=== PATIENT | female | born 1945 | race Caucasian/White ===

== ENCOUNTER 2019-05-04 03:14 | Inpatient (IN) ==
--- NOTE | 2019-04-25 11:07 | EKG Report ---
Test Performed on : 04/25/2019 10:33:45 AM Test Reason : PAT Blood Pressure : / mmHG Vent. Rate : 068 BPM Atrial Rate : 068 BPM P-R Int : 150 ms QRS Dur : 078 ms QT Int : 404 ms P-R-T Axes : 000 012 012 degrees QTc Int : 429 ms Normal sinus rhythm. Low voltage QRS Borderline ECG No previous ECGs available Confirmed by Fito STOVALL, Luis Daniel Aguirre ([id number]) on 04/26/2019 4:18:59 PM
[2019-04-25 11:23] LABS: BASO% 1.2 % (0.0-0.8); EOS# 0.31 X1000 (0.0-0.7); EOS% 3.7 % (0.0-10.0); HEMOGLOBIN 14.1 g/dL (12.0-16.0); IMM GRAN# 0.03 X1000 (0.0-0.04); IMM GRAN% 0.4 % (0.0-0.5); LYMPH# 1.36 X1000 (1.2-3.4); LYMPH% 16.2 % (20.5-51.1); MCH 32.3 PG (27-31); MCHC 34.4 g/dL (33-37); MONO# 0.99 X1000 (0.11-0.59); MONO% 11.8 % (1.7-9.3); MPV 9.4 FL (7.4-10.4); NEUT# 5.59 X1000 (1.4-6.5); NEUT% 66.7 % (42.2-75.2); PLT 323 X1000 (130-400); RBC 4.36 XMIL (4.2-5.4); RDW 13.3 % (11.5-14.5); WBC 8.38 X1000 (4.8-10.8)
[2019-05-04] MEDS ORDERED: ENTEREG ONE (06:35)
[2019-05-04] MEDS ORDERED: PEPCID ONE (06:35)
[2019-05-04] MEDS ORDERED: INVANZ 1 GM/NS 1 GM/50 ML IVPB ONE (06:36)
[2019-05-04] MEDS ORDERED: LR 1,000 ML ONE ×3 (06:36→12:18)
[2019-05-04] MEDS ORDERED: DIPRIVAN 1% ONE (06:53)
[2019-05-04] MEDS ORDERED: QUELICIN (DOSE) ONE (06:55)
[2019-05-04] MEDS ORDERED: ROBINUL ONE (06:55)
[2019-05-04] MEDS ORDERED: XYLOCAINE-MPF 2% ONE (06:55)
[2019-05-04] MEDS ORDERED: MARCAINE 0.25% PF/EPI 1:200,000 ONE (07:27)
[2019-05-04] MEDS ORDERED: SODIUM CHLORIDE 0.9% 10 ML ONE (07:44)
[2019-05-04] MEDS ORDERED: MARCAINE 0.5% PF ONE (07:44)
[2019-05-04] MEDS ORDERED: EXPAREL 1.3% ONE (07:45)
[2019-05-04] MEDS ORDERED: OFIRMEV 1000 MG/ISOTONIC SOLN 1,000 MG/100 ML BOTTLE ONE (08:01)
[2019-05-04] MEDS ORDERED: ZEMURON ONE ×3 (08:09→10:07)
[2019-05-04] MEDS ORDERED: TORADOL ONE (08:26)
[2019-05-04] MEDS ORDERED: ZOFRAN ONE (08:26)
[2019-05-04] MEDS ORDERED: DECADRON ONE (08:26)
[2019-05-04] MEDS ORDERED: FENTANYL ONE (08:33)
[2019-05-04 09:21] LABS: URINE SOURCE CATH
[2019-05-04 09:27] LABS: BILIRUBIN URINE NEGATIVE (NEGATIVE); BLOOD URINE TRACE (NEGATIVE); COLOR YELLOW; GLUCOSE URINE NEGATIVE (NEGATIVE); KETONE URINE 20 mg/dL (NEGATIVE); LEUKOCYTES URINE NEGATIVE (NEGATIVE); NITRITE URINE NEGATIVE (NEGATIVE); PH URINE 6.5; PROTEIN URINE NEGATIVE (NEGATIVE); SP GRAVITY URINE 1.002; TURBIDITY URINE CLEAR (CLEAR); UROBILINOGEN URINE NORMAL (NORMAL)
[2019-05-04 09:31] LABS: UR EPITHELIAL CELLS <10 /HPF (<10); URINE BACTERIA NEGATIVE /HPF; URINE RBC <10 /HPF (<10); URINE WBC <10 /HPF (<10)
[2019-05-04] MEDS ORDERED: BRIDION ONE (11:21)
[2019-05-04] MEDS ORDERED: PHENERGAN ONE (12:25)
[2019-05-04] MEDS ORDERED: XOPENEX NEB INH PRN (13:13)
[2019-05-04] MEDS ORDERED: ZOFRAN IV PRN (13:13)
[2019-05-04] MEDS ORDERED: COMBIVENT RESPIMAT INHALER INH SCH (13:13)
[2019-05-04] MEDS: APRESOLINE PO SCH ×2 (14:59→21:47)
[2019-05-04] MEDS: OFIRMEV 1000 MG/ISOTONIC SOLN 1,000 MG/100 ML BOTTLE IV SCH ×2 (14:59→21:48)
[2019-05-04] MEDS: DUONEB (A & A) INH SCH (16:16)
[2019-05-04] MEDS: PULMICORT INH SCH (21:10)
[2019-05-04] MEDS: SYMBICORT 160/4.5 MICROGM INHALER INH SCH (21:15)
[2019-05-04] MEDS: NORVASC PO SCH (21:47)
[2019-05-04] MEDS: CRESTOR PO SCH (21:47)
[2019-05-04] MEDS: PERIDEX MT SCH (21:47)
[2019-05-04] MEDS: LR 1,000 ML IV SCH (22:48)
--- NOTE | 2019-05-05 01:17 | OPERATIVE NOTE ---
PROCEDURE DATE: 05/04/2019 PREOPERATIVE DIAGNOSIS: Long segment diverticular stricture. POSTOPERATIVE DIAGNOSIS: Long segment diverticular stricture. PROCEDURES PERFORMED: 1. Robotic converted to open low anterior resection with mobilization of the splenic flexure. 2. Descending colectomy. MANAGER AMBULATORY: Dr. Olea. ESTIMATED BLOOD LOSS: 50 mL. SPECIMENS: Left colon. INDICATIONS: A 73-year-old female who has had vague GI complaints, discomfort, colicky pain for the last couple years. She had a CT scan that showed difficulty traversing several stenotic segments of sigmoid colon. It was an incomplete colonoscopy, but barium enema did not show a right-sided lesion, but demonstrated severe diverticular changes with strictures of the sigmoid colon. OPERATIVE FINDINGS: There was dense inflammation along the left pelvic sidewall and into the pelvis. There is a fibroid uterus. There was no purulence. The proximal descending colon was normal. The operation was converted given the inability to divide the thickened inflamed mesorectum and sigmoid mesentery. OPERATIVE NOTE: Risks, benefits, and alternatives were discussed with the patient and she consented to the procedure. She was seen preoperatively. Surgical site was confirmed. She has taken operating room, placed supine position. General anesthesia induced without complication. All bony prominences were padded. A TAP block was performed by Anesthesia. For details, please see their record. A Song catheter was placed. She was placed in lithotomy, and her abdomen was prepped chlorhexidine solution and draped in usual fashion. After time-out, we made a supraumbilical midline incision approximately 25 cm from the pubic symphysis and inflated the abdomen through this. We carried this down in a [place] fashion. After insufflating the abdomen, we placed her in Trendelenburg and then placed a robotic camera trocar between the ASIS and the umbilicus midway under direct visualization. We then placed a left upper quadrant and a left lateral robotic trocar, and then a 5 mm hospital clinic assistant port in the right upper quadrant. Docked the robot and then began mobilization. We took the sigmoid vessels, identifying them easily, and pursued a medial to lateral dissection. This was distorted, as such we aborted this and started a lateral dissection starting in a more virgin plane and extending distally. We were able to mobilize the colon off the lateral pelvic sidewall and create a window, and begin taking the mesentery extending distally. However, this was very thickened and inflamed and our vessel sealer was not adequately dividing this, limiting our dissection. As such, we aborted this, extended our midline incision, placed an Raymond wound protector, and we were able to mobilize up a significantly distorted sigmoid colon out of the pelvis. At this point, using a hand-held LigaSure device, we took her colon distally, identifying an area of normal proximal rectum and a TA stapler was used to divide this. There was quite a long segment of diseased colon in the descending area, as such we took down the splenic flexure all the way back to the middle colic vessel, dividing the inferior mesenteric vein. This provided adequate length. At this point, a pursestring device was fired after cleaning off the epiploic fat and the descending colon mesentery, and a 28 mm EEA stapler was placed. We did size the colon prior to this. The pursestring device was tied. The small bowel was packed out of the way, again, and Dr. Olea went below and passed sequential sizers up to the rectal stump. We did have to mobilize this some, and a 28 mm EEA stapler was advanced. The spike was deployed and a stapled end-to-end anastomosis was created. Both donuts were intact. A submersion leak test with the rigid proctoscope was performed, there was no leak. There was no tension whatsoever and we felt we had healthy rectum and colon to create our anastomosis. The small bowel was inspected and placed in neutral position. Omentum was placed over this. We closed the peritoneum with 3-0 Vicryl sutures. The fascia was closed with #1 running looped PDS suture. We closed the skin. Our gloves were changed as well as the instruments prior to abdominal closure. We closed the skin with surgical clips. She tolerated well. She was awoken and transferred to recovery. I spoke with the family. Urine was clear at the end of the case. Counts were correct. cc: Khang Sommers MD
[2019-05-05] MEDS: PULMICORT INH SCH ×2 (01:51→08:24)
[2019-05-05] MEDS: DUONEB (A & A) INH SCH ×3 (01:52→16:30)
[2019-05-05] MEDS: OFIRMEV 1000 MG/ISOTONIC SOLN 1,000 MG/100 ML BOTTLE IV SCH ×2 (02:34→08:07)
[2019-05-05 06:12] LABS: HEMATOCRIT 34.4 % (37.0-47.0); HEMOGLOBIN 11.8 g/dL (12.0-16.0); MCH 31.9 PG (27-31); MCHC 34.3 g/dL (33-37); RBC 3.7 XMIL (4.2-5.4); RDW 13.1 % (11.5-14.5); WBC 16.43 X1000 (4.8-10.8)
[2019-05-05 06:28] LABS: AGAP 9; BUN 6 mg/dL (8-22); CHLORIDE 96 mmol/L (98-107); COSMO 259; CREATININE 0.5 mg/dL (0.5-0.9); ESTIMATED GFR > 60; GLUCOSE 149 mg/dL (70-104); POTASSIUM 3.6 mmol/L (3.5-5.1); SODIUM 129 mmol/L (136-145); TCO2 24 mmol/L (25-35)
[2019-05-05] MEDS: MAG-OX PO SCH (08:06)
[2019-05-05] MEDS: PRILOSEC PO SCH (08:07)
[2019-05-05] MEDS: ENTEREG PO SCH ×2 (08:07→20:10)
[2019-05-05] MEDS: SYNTHROID PO SCH (08:07)
[2019-05-05] MEDS: APRESOLINE PO SCH ×3 (08:07→20:10)
[2019-05-05] MEDS: LOVENOX SUBQ SCH (08:08)
[2019-05-05] MEDS: PERIDEX MT SCH ×2 (08:08→20:10)
[2019-05-05] MEDS: SYMBICORT 160/4.5 MICROGM INHALER INH SCH ×2 (08:24→19:15)
[2019-05-05] MEDS: ULTRAM PO PRN ×3 (09:49→22:21)
[2019-05-05] MEDS: LR 1,000 ML IV SCH ×3 (09:51→20:07)
[2019-05-05] MEDS: MORPHINE IV PRN ×4 (14:51→23:37)
--- NOTE | 2019-05-05 18:39 | GENERAL SURGERY PROGRESS NOTE ---
DATE: 05/05/2019 SUBJECTIVE: Having more pain this morning. No nausea. She had a bowel movement that had some old-appearing blood in it. She is being cleaned up currently. Hemodynamically, she has been stable. Her abdomen is soft, incision is intact. She is on appropriate medications, maintenance IV fluids, Lovenox, Entereg, home medications, Ultram for pain, as well Ofirmev. I will add morphine. ASSESSMENT AND PLAN: A 76-year-old female status post descending colectomy for diverticular disease. Overall, she is okay. I have encouraged her to be out of bed. We will keep her Song today, remove tomorrow. I have encouraged her to go slow with clear liquids. cc: Khang Sommers MD
[2019-05-05] MEDS: CRESTOR PO SCH (20:10)
[2019-05-05] MEDS: NORVASC PO SCH (20:10)
[2019-05-06] MEDS: DUONEB (A & A) INH SCH ×3 (03:24→17:17)
[2019-05-06] MEDS: PULMICORT INH SCH ×2 (03:24→11:18)
[2019-05-06] MEDS: ULTRAM PO PRN ×3 (04:33→17:46)
[2019-05-06] MEDS: SYNTHROID PO SCH (06:52)
[2019-05-06] MEDS: PRILOSEC PO SCH (06:52)
[2019-05-06] MEDS: LR 1,000 ML IV SCH (06:53)
[2019-05-06] MEDS: SYMBICORT 160/4.5 MICROGM INHALER INH SCH ×2 (07:52→19:05)
[2019-05-06] MEDS: MORPHINE IV PRN ×3 (08:47→22:53)
[2019-05-06] MEDS: PERIDEX MT SCH ×2 (08:48→22:52)
[2019-05-06] MEDS: LOVENOX SUBQ SCH (08:49)
[2019-05-06] MEDS: APRESOLINE PO SCH ×3 (08:49→22:54)
[2019-05-06] MEDS: MAG-OX PO SCH (08:49)
[2019-05-06] MEDS: ENTEREG PO SCH ×2 (08:49→22:53)
--- NOTE | 2019-05-06 13:51 | GENERAL SURGERY PROGRESS NOTE ---
DATE: 05/06/2019 SUBJECTIVE: Doing well. Had flatus overnight. No further bleeding. No nausea. Sore but pain is reasonably controlled. No fevers. No tachycardia. OBJECTIVE: Blood pressure 137/69. Abdomen is soft. She is standing up in her room. Integument is warm and dry. DIAGNOSTIC STUDIES: There are no new laboratories this morning. ASSESSMENT AND PLAN: A 73-year-old female status post descending colectomy. I will Hep-Lock her fluids and give her a soft diet as she has return of bowel function. Continue pain control, ambulation, and physical therapy. cc: Khang Sommers MD MTDD
[2019-05-06] MEDS: CRESTOR PO SCH (22:52)
[2019-05-06] MEDS: NORVASC PO SCH (22:53)
[2019-05-07] MEDS: ULTRAM PO PRN ×4 (01:47→21:14)
[2019-05-07] MEDS: PULMICORT INH SCH ×3 (05:00→19:21)
[2019-05-07] MEDS: DUONEB (A & A) INH SCH ×3 (05:00→16:00)
[2019-05-07] MEDS: MORPHINE IV PRN ×2 (05:09→18:37)
[2019-05-07] MEDS: PRILOSEC PO SCH (06:08)
[2019-05-07] MEDS: SYNTHROID PO SCH (06:08)
[2019-05-07] MEDS: SYMBICORT 160/4.5 MICROGM INHALER INH SCH ×2 (07:40→19:21)
[2019-05-07] MEDS: PERIDEX MT SCH ×2 (08:59→21:13)
[2019-05-07] MEDS: APRESOLINE PO SCH ×3 (08:59→21:14)
[2019-05-07] MEDS: ENTEREG PO SCH ×2 (08:59→21:11)
[2019-05-07] MEDS: LOVENOX SUBQ SCH (08:59)
[2019-05-07] MEDS: MAG-OX PO SCH (08:59)
--- NOTE | 2019-05-07 16:32 | GENERAL SURGERY PROGRESS NOTE ---
DATE: 05/07/2019 SUBJECTIVE: Doing well, passing gas, having some pain but reasonably controlled. No fevers. No tachycardia. OBJECTIVE: Abdomen: Soft. Dressings are all in place and intact. ASSESSMENT AND PLAN: This is a 73-year-old female status post sigmoid colectomy. She is doing well. We will continue current care. She is on Lovenox. Pain is reasonably controlled. Keep her Entereg going. Plan on stopping that tomorrow. Diet is GI soft. cc: Khang Sommers MD
[2019-05-07] MEDS: NORVASC PO SCH (21:13)
[2019-05-07] MEDS: CRESTOR PO SCH (21:13)
[2019-05-08] MEDS: DUONEB (A & A) INH SCH ×4 (03:26→22:07)
[2019-05-08] MEDS: ULTRAM PO PRN ×3 (05:55→18:42)
[2019-05-08] MEDS: SYNTHROID PO SCH ×2 (05:55→06:31)
[2019-05-08] MEDS: PRILOSEC PO SCH ×2 (05:56→06:31)
[2019-05-08] MEDS: PULMICORT INH SCH ×2 (07:30→20:17)
[2019-05-08] MEDS: SYMBICORT 160/4.5 MICROGM INHALER INH SCH ×2 (07:30→19:56)
[2019-05-08 07:55] LABS: AGAP 12; BUN 5 mg/dL (8-22); CALCIUM 8.5 mg/dL (8.8-10.2); CHLORIDE 96 mmol/L (98-107); COSMO 266; CREATININE 0.4 mg/dL (0.5-0.9); ESTIMATED GFR > 60; GLUCOSE 150 mg/dL (70-104); MAGNESIUM 1.8 mg/dL (1.5-2.7); POTASSIUM 3.2 mmol/L (3.5-5.1); SODIUM 133 mmol/L (136-145); TCO2 25 mmol/L (25-35)
[2019-05-08] MEDS: LOVENOX SUBQ SCH (10:06)
[2019-05-08] MEDS: PERIDEX MT SCH ×2 (10:06→20:52)
[2019-05-08] MEDS: ENTEREG PO SCH ×2 (10:06→20:52)
[2019-05-08] MEDS: MAG-OX PO SCH (10:06)
[2019-05-08] MEDS: APRESOLINE PO SCH ×2 (10:07→20:52)
--- NOTE | 2019-05-08 13:34 | GENERAL SURGERY PROGRESS NOTE ---
DATE: 05/08/2019 SUBJECTIVE: Doing well, tolerating diet. Has had return of bowel function. Pain is well controlled. She is ambulating the halls. OBJECTIVE: No fevers. No tachycardia. Abdomen is soft. Her dressings are intact. LABORATORY DATA: Sodium is 133, potassium 3.2, creatinine 0.5 glucose 150, Mag is 1.8. ASSESSMENT/PLAN: 73-year-old female status post sigmoid colectomy or really a descending colectomy for severe diverticulitis related changes and complications. She is doing well. We will normalize her today. Plan on home in the morning possibly this evening if she is doing okay. She will keep her on Ensure supplementations. We will discontinue her IV. cc: Khang Sommers MD
[2019-05-08 14:48] LABS: BASO# 0.03 X1000 (0.0-0.2); BASO% 0.3 % (0.0-0.8); EOS# 0.13 X1000 (0.0-0.7); EOS% 1.4 % (0.0-10.0); HEMATOCRIT 36.2 % (37.0-47.0); HEMOGLOBIN 12.7 g/dL (12.0-16.0); IMM GRAN# 0.04 X1000 (0.0-0.04); IMM GRAN% 0.4 % (0.0-0.5); LYMPH# 1.05 X1000 (1.2-3.4); LYMPH% 11.6 % (20.5-51.1); MCH 31.9 PG (27-31); MCHC 35.1 g/dL (33-37); MONO# 0.99 X1000 (0.11-0.59); MONO% 10.9 % (1.7-9.3); MPV 8.8 FL (7.4-10.4); NEUT# 6.85 X1000 (1.4-6.5); NEUT% 75.4 % (42.2-75.2); PLT 414 X1000 (130-400); RBC 3.98 XMIL (4.2-5.4); RDW 12.8 % (11.5-14.5); WBC 9.09 X1000 (4.8-10.8)
[2019-05-08] MEDS: CRESTOR PO SCH (20:52)
[2019-05-08] MEDS: NORVASC PO SCH (20:52)
[2019-05-09] MEDS: DUONEB (A & A) INH SCH ×2 (03:27→09:20)
[2019-05-09] MEDS: ULTRAM PO PRN (04:05)
[2019-05-09] MEDS: PRILOSEC PO SCH ×2 (05:53→06:27)
[2019-05-09] MEDS: SYNTHROID PO SCH ×2 (05:53→06:27)
[2019-05-09 07:12] VITALS: BP 143/73
[2019-05-09] MEDS: ENTEREG PO SCH (09:07)
[2019-05-09] MEDS: MAG-OX PO SCH (09:07)
[2019-05-09] MEDS: PERIDEX MT SCH (09:08)
[2019-05-09] MEDS: APRESOLINE PO SCH (09:08)
[2019-05-09] MEDS: LOVENOX SUBQ SCH (09:08)
[2019-05-09] MEDS: SYMBICORT 160/4.5 MICROGM INHALER INH SCH (09:19)
[2019-05-09] MEDS: PULMICORT INH SCH (09:20)
--- NOTE | 2019-05-10 07:25 | DISCHARGE SUMMARY ---
ADMISSION DATE: 05/04/2019 DISCHARGE DATE: 05/09/2019 ADMITTING DIAGNOSIS: Diverticular stricture. DISCHARGE DIAGNOSIS: Diverticular stricture. PROCEDURE PERFORMED: Robotic converted to open sigmoid colectomy. HISTORY OF PRESENT ILLNESS: This 73-year-old female who has had penitentiary GI complaints related to a long segment diverticular stricture. Resection was indicated. HOSPITAL COURSE: The patient was taken to the operating room on the day of her admission for above procedure. For details, please see dictated operative note. Postoperatively, she did well. Her Song was removed on postoperative day 1, and she was able to void. She had return of bowel function by day 3. Diet was advanced, and she tolerated it well. She continued to have flatus. Her incisions were intact, and her pain was controlled. She was continued on Lovenox and PPI during her stay as well as nutritional supplementation. On the day of her discharge, her labs were appropriate with stable hematocrit. Normal renal function. DISPOSITION: Home to the care of her . DISCHARGE DIET: GI soft. DISCHARGE MEDICATIONS: She is given prescription for Ultram, Colace, and Zofran. Discharge Instructions were given in written and verbal format. Follow up appointment with me in a week. cc: Khang Sommers MD
== END 2019-05-09 10:06 | disposition home or self-care (01) | DRG 331 ==
LOC: SURHOLD 03:14 → 4N 13:46
PROVIDERS: ADMIT Surgery; ATTEND Surgery

== ENCOUNTER 2019-06-04 07:57 | Inpatient (IN) ==
--- NOTE | 2019-06-04 08:33 | Diag Imaging Result Doc PS360 ---
EXAM: CT HEAD W/O CONTRAST INDICATION: ams TECHNIQUE: This exam was performed using automated exposure control, adjustment of mA or kV according to patient size, and/or use of iterative reconstruction technique. COMPARISON: 09/11/2018 FINDINGS: There is advanced periventricular and subcortical white matter microangiopathy similar to the previous study. There are a few foci of low attenuation in the left frontal lobe in the periventricular white matter and subcortical white matter as well as the left internal capsule that cannot clearly be identified on the previous study. Nonetheless, these still may represent chronic lacunar infarcts. However, subacute infarct cannot completely be excluded in the right clinical scenario. No other definite acute infarct is appreciated. There is no discrete intracranial mass, mass effect, or intracranial hemorrhage. There is stable right frontal sinus mucosal disease. The calvaria is intact. IMPRESSION: Advanced white matter microangiopathy and a few foci of low attenuation in the left frontal lobe white matter that cannot clearly be identified on the previous study. Although they still may be chronic, subacute infarct cannot completely be excluded. Please correlate clinically. Electronically signed by Chris Chu 06/04/2019 8:31 AM
--- NOTE | 2019-06-04 08:40 | Diag Imaging Result Doc PS360 ---
EXAM: CHEST-PORTABLE 06/04/2019 HISTORY: stroke like symptoms TECHNIQUE: AP portable upright at 0831 COMMENT: There is no evidence of acute cardiac or pulmonary disease. The heart size and pulmonary vascularity are less enlarged than on 09/13/2018. IMPRESSION: No evidence of acute disease. Electronically signed by Eduin Clark 06/04/2019 8:38 AM
[2019-06-04 08:44] LABS: BASO# 0.06 X1000 (0.0-0.2); BASO% 0.7 % (0.0-0.8); EOS# 0.09 X1000 (0.0-0.7); HEMOGLOBIN 13.5 g/dL (12.0-16.0); IMM GRAN# 0.02 X1000 (0.0-0.04); IMM GRAN% 0.2 % (0.0-0.5); LYMPH# 0.98 X1000 (1.2-3.4); LYMPH% 10.8 % (20.5-51.1); MCH 31.3 PG (27-31); MCHC 33.8 g/dL (33-37); MCV 92.6 FL (81-99); MONO# 0.57 X1000 (0.11-0.59); MONO% 6.3 % (1.7-9.3); NEUT# 7.34 X1000 (1.4-6.5); PLT 412 X1000 (130-400); RBC 4.32 XMIL (4.2-5.4); RDW 13.4 % (11.5-14.5); WBC 9.06 X1000 (4.8-10.8)
--- NOTE | 2019-06-04 08:48 | PROVIDER DOCUMENTATION ---
HPI-Neurological Disorder - General Chief Complaint: Stroke-Like Symptoms Stated Complaint: STROKE SYMPTOMS Time Seen by Provider: 06/04/19 08:33 Source: patient, family Allergies/Adverse Reactions: Patient Allergies Allergy/AdvReac Type Severity Reaction Status Date / Time latex AdvReac RASH Verified 06/04/19 08:37 piroxicam [From Feldene] AdvReac NAUSEA/VOMI Verified 06/04/19 08:37 TING Home Medications: Home Medication List Medication Instructions Recorded Confirmed Last Taken Type Budesonide 0.5 mg INH BID PRN 09/11/18 06/04/19 05/04/19 04:00 History Budesonide/Formoterol Fumarate 2 puff INH BID 09/11/18 06/04/19 05/04/19 04:00 History [Symbicort 160-4.5 Mcg Inhaler] Calcium Carbonate/Vit D3 [Caltrate 1 each PO DAILY 09/11/18 06/04/19 05/03/19 07:00 History 600 + D] Cetirizine HCl/Pseudoephedrine 1 each PO Q12H PRN PRN 09/11/18 06/04/19 05/03/19 08:00 History [Zyrtec-D Tablet] Ipratropium/Albuterol Sulfate 1 puff INH 4DAY 09/11/18 06/04/19 05/04/19 04:00 History [Combivent Respimat 20-100 Mcg] Levalbuterol HCl [Xopenex] 1.25 mg INH Q8H PRN PRN 09/11/18 06/04/19 6 Months Ago History ~11/03/18 Levothyroxine [Synthroid] 50 microgm PO DAILY 09/11/18 06/04/19 05/04/19 04:00 History Nitroglycerin Sl [Nitroglycerin] 0.4 mg SL PRN PRN 09/11/18 06/04/19 Unknown History Raloxifene [Evista] 60 mg PO DAILY 09/11/18 06/04/19 05/02/19 History Amlodipine [Norvasc] 5 mg PO QHS 04/25/19 06/04/19 05/03/19 18:00 History Folic Acid 1 mg PO DAILY 04/25/19 06/04/19 05/03/19 17:00 History LISINOpril [Prinivil] 40 mg PO DAILY 04/25/19 06/04/19 05/03/19 08:00 History Omeprazole [Prilosec] 20 mg PO DAILY@0700 04/25/19 06/04/19 05/03/19 08:00 History Prednisone 10 mg PO PRN PRN 04/25/19 06/04/19 Unknown History Rosuvastatin Calcium [Crestor] 5 mg PO QHS 04/25/19 06/04/19 05/03/19 17:00 History Tramadol HCl 50 mg PO Q6H PRN 06/04/19 06/04/19 Unknown History - History of Present Illness-Neuro Nature of Presenting Problem: most of hx from . About 4-5 days ago, began having difficulty with speech, completing sentences, forgetting name, age, etc. Also holding onto him more when ambulating. This am, she fell, which is new. She had ~18 inch colon resection for diverticulosis about a month ago. Refuses to take her pain meds, did take trazodone for several days, last dose about a week ago, no other med changes. She has had abd pain since, no vomiting, stools have been loose since. No fever Associated Symptoms: reports: decreased ability to walk or stand Review of Systems - Adult - REVIEW OF SYSTEMS - ADULT Constitutional: reports: no symptoms reported Eyes: reports: no symptoms reported Cardiovascular: reports: no symptoms reported Respiratory: reports: no symptoms reported Gastrointestinal: reports: see HPI Genitourinary: reports: no symptoms reported Musculoskeletal: reports: no symptoms reported Neurological: reports: see HPI Psychiatric: reports: no symptoms reported Endocrine: reports: no symptoms reported Hematologic/Lymphatic: reports: no symptoms reported Allergic/Immunologic: reports: no symptoms reported Past History - Adult - PAST MEDICAL HISTORY-ADULT Review of Records: reports: Medications Reviewed Cardiovascular: reports: HTN Respiratory: reports: COPD Gastrointestinal: reports: diverticulosis Neurological: reports: denies history Diabetes Type: Type 1 - PRIOR SURGERIES/PROCEDURES Surgical/Procedure History: reports: recent surgery - SOCIAL HISTORY Smoking: denies Physical Exam- Neurological - Physical Exam-Neuro Initial Vital Signs Reviewed: Yes General Appearance: appears well, alert, no apparent distress Eye Exam: bilateral eye: normal inspection, PERRL, EOMI HENMT: normocephalic/atraumatic, moist mucous membranes, normal ENT inspection, pharynx normal Head Injury: no evidence of injury Neck: full range of motion, supple, normal inspection Respiratory: chest non-tender, lungs clear, normal breath sounds, no pleuratic chest pain, no respiratory distress, no accessory muscle use Cardiovascular: regular rate, rhythm, no edema, no gallop, no murmur Abdominal Exam: normal bowel sounds, soft, tenderness (mild-mod across lower abd) Extremity: normal range of motion, non-tender, normal inspection, 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 Exam: normal hearing, PERRL, abnormal speech (antalgic), other (CN II-XII intact) Coordination/Gait: normal finger to nose Motor/Sensory: no motor deficit, no sensory deficit, no pronator drift, other (holds both LE in extension well) Neurologic: no motor/sensory deficits Integumentary: normal color, normal turgor, warm/dry Psych/Mental Status: normal mood/affect, normal thought content, normal thought process - Glascow Coma Scale Best Eye Response: (4) open spontaneously Best Verbal Response: (5) oriented Best Motor Response: (6) obeys commands Progress - PLAN OF CARE/RESULTS Progress/Plan/Lab Results: Vital Signs - 8 hr 06/04/19 07:59 Temperature 97.8 F Pulse Rate 63 Respiratory Rate 18 Blood Pressure 164/84 O2 Sat by Pulse Oximetry 99 Laboratory Results - last 24 hr 06/04/19 06/04/19 06/04/19 08:26 08:26 08:26 WBC 9.06 RBC 4.32 Hgb 13.5 Hct 40.0 MCV 92.6 MCH 31.3 H MCHC 33.8 RDW Std Deviation 13.4 Plt Count 412 H MPV 9.0 Immature Gran % (Auto) 0.2 Neut % (Auto) 81.0 H Lymph % (Auto) 10.8 L [place] % (Auto) 6.3 Eos % (Auto) 1.0 Baso % (Auto) 0.7 Immature Gran # (Auto) 0.02 Neut # (Auto) 7.34 H Lymph # (Auto) 0.98 L [place] # (Auto) 0.57 Eos # (Auto) 0.09 Baso # (Auto) 0.06 PT 13.1 INR 0.92 PTT (Actin FS) 30.5 Sodium 147 H Potassium 4.5 Chloride 106 Carbon Dioxide 26 Anion Gap 15 BUN 9 Creatinine 0.7 Estimated GFR/1.73 m2 > 60 BUN/Creatinine Ratio 13 Glucose 132 H POC Glucose Calculated Osmolality 293 Calcium 9.5 Total Bilirubin 0.32 AST 15 ALT 14 Alkaline Phosphatase 40 Troponin T Total Protein 6.8 Albumin 3.7 Globulin 3.1 Albumin/Globulin Ratio 1.2 Urine Source Urine Color Urine Turbidity Urine pH Ur Specific [place] Urine Protein Ur Glucose (Stick) Ur Ketones (Stick) Urine Blood Urine Nitrite Urine Bilirubin Urobilinogen Dipstick Urine Leukocytes Urine WBC (Auto) Urine RBC (Auto) U Epithel Cells (Auto) Urine Bacteria (Auto) 06/04/19 06/04/19 06/04/19 08:26 08:38 09:17 WBC RBC Hgb Hct MCV MCH MCHC RDW Std Deviation Plt Count MPV Immature Gran % (Auto) Neut % (Auto) Lymph % (Auto) [place] % (Auto) Eos % (Auto) Baso % (Auto) Immature Gran # (Auto) Neut # (Auto) Lymph # (Auto) [place] # (Auto) Eos # (Auto) Baso # (Auto) PT INR PTT (Actin FS) Sodium Potassium Chloride Carbon Dioxide Anion Gap BUN Creatinine Estimated GFR/1.73 m2 BUN/Creatinine Ratio Glucose POC Glucose 100 Calculated Osmolality Calcium Total Bilirubin AST ALT Alkaline Phosphatase Troponin T < 0.010 Total Protein Albumin Globulin Albumin/Globulin Ratio Urine Source CLEAN CATCH Urine Color YELLOW Urine Turbidity CLEAR Urine pH 6.5 Ur Specific [place] 1.007 Urine Protein NEGATIVE Ur Glucose (Stick) NEGATIVE Ur Ketones (Stick) NEGATIVE Urine Blood TRACE A Urine Nitrite NEGATIVE Urine Bilirubin NEGATIVE Urobilinogen Dipstick NORMAL Urine Leukocytes MODERATE A Urine WBC (Auto) 20-40 A Urine RBC (Auto) <10 U Epithel Cells (Auto) <10 Urine Bacteria (Auto) 4+ Orders Category Date Time Status Cardiac Monitoring DIRECTED Care 06/04/19 08:05 Active Finger Stick Blood Sugar (ED) DIRECTED Care 06/04/19 08:05 Completed Saline Loc NOW Care 06/04/19 08:05 Active CHEST-PORTABLE [RAD] Stat Exams 06/04/19 08:[address] HEAD W/O CONTRAST [CT] Stat Exams 06/04/19 08:04 Completed MRA BRAIN W/O CONTRAST [MRI] Stat Exams 06/04/19 10:11 Ordered MRI BRAIN W/WO CONTRAST [MRI] Stat Exams 06/04/19 10:11 Ordered CBC WITH ELECTRONIC DIFF [HEME] Stat Lab 06/04/19 08:26 Completed COMPREHENSIVE METABOLIC PANEL [CHEM] Stat Lab 06/04/19 08:26 Completed PROTIME WITH INR [COAG] Stat Lab 06/04/19 08:26 Completed PTT [COAG] Stat Lab 06/04/19 08:26 Completed TROPONIN T Stat Lab 06/04/19 08:26 Completed URINALYSIS W/POSS RFLX CULT [URINALYSIS] Stat Lab 06/04/19 09:17 Completed CefTRIAXONE [Rocephin] 1 gm Med 06/04/19 10:01 Active 0.9% Sodium Chloride Inj [Ns] 50 ml IV NOW EKG [EKG] Stat Ther 06/04/19 08:05 Draft Transfer/Admit Order [TRANSFER] Routine Transfer 06/04/19 10:15 Ordered Result Diagrams: 06/04/19 08:26 06/04/19 08:26 - EKG 1 Time of EKG reading by physician:: 08:48 EKG Read and Signed by:: Mendez Pickett EKG Interpretation (*Must complete 3 of following elements*): Abnormal Rate: 72 Rhythm: NSR [place]: normal QRS: normal ST Wave: non-specific ST changes - XRAY 1 XRAY Study: Chest Impression: Normal - CT/MRI 1 CT Study: Head Impression: Abnormal (EXAM: CT HEAD W/O CONTRAST INDICATION: ams TECHNIQUE: This exam was performed using automated exposure control, adjustment of mA or kV according to patient size, and/or use of iterative reconstruction technique. COMPARISON: 09/11/2018 FINDINGS: There is advanced periventricular and subcortical white matter microangiopathy similar to the previous study. There are a few foci of low attenuation in the left frontal lobe in the periventricular white matter and subcortical white matter as well as the left internal capsule that cannot clearly be identified on the previous study. Nonetheless, these still may represent chronic lacunar infarcts. However, subacute infarct cannot completely be excluded in the right clinical scenario. No other definite acute infarct is appreciated. There is no discrete intracranial mass, mass effect, or intracranial hemorrhage. There is stable right frontal sinus mucosal disease. The calvaria is intact. IMPRESSION: Advanced white matter microangiopathy and a few foci of low attenuation in the left frontal lobe white matter that cannot clearly be identified on the previous study. Although they still may be chronic, subacute infarct cannot completely be excluded. Please correlate clinically. Electronically signed by Chris Chu 06/04/2019 8:31 AM 06/04/1933 Interpreting Physician: Chris Chu MD Dictated Date/Time: 06/04/19825 cc: Mendez Pickett MD; Vic Celis MD) - CONSULTS/PCP/HOSPITALIST Notification #1 *Consult/PCP/Hospitalist*: Hospitalist Time Discussed: 10:15 Consult Disposition: Will see in ED, Admit Departure - Departure Date of Disposition Decision: 06/04/19 Time of Disposition Decision: DIAGNOSIS: CVA (cerebral vascular accident) Qualifiers: CVA mechanism: unspecified Qualified Code(s): I63.9 - Cerebral infarction, unspecified UTI (urinary tract infection) Qualifiers: Urinary tract infection type: site unspecified Hematuria presence: without hematuria Qualified Code(s): N39.0 - Urinary tract infection, site not specified Disposition: ADMITTED INPATIENT 09 Certified Medical Emergency: Emergent Condition: Good Additional Freetext Instructions: ED Follow Up Instructions: You have been treated by a care provider in the Emergency Department. These instructions are being provided to you so you can have an understanding of how to care for yourself upon discharge. Upon discharge from the Emergency Department, you are responsible for making arrangements for follow-up care by a physician of your choice. Take all prescribed medications as directed. Return to the Emergency Department immediately for any new or worsening symptoms. You may call the Physician Referral phone number at [phone] to obtain a list of Physicians who are taking new patients. Referrals and Follow-Ups: Vic Celis MD [Primary Care Provider] - - Critical Care Note This patient required my direct & personal management of CC.: No Attestation - Physician/ DEUCE Attestation Patient care was provided by Advanced Practice Provider:: No The physician spent face to face time with patient:: Yes Advanced Practice Provider documentation review:: Supervising physician onsite and consulted in the evaluation and care of this patient. The physician did have a face to face encounter with the patient. - NIH Stroke Scale NIH Type: Initial Evaluation Level of Consciousness: 0-Alert LOC Questions (ask month and age): 0-Answers Both Correctly LOC Commands (ask to open & close eyes;make a fist, let go): 0-Obeys Both Correctly Best Gaze (horizontal eye movement): 0-Normal Visual (use finger movement, counting or visual threat): 0-No Visual Loss Facial Palsy (show teeth or raise eyebrows & close eyes tght: 0-Symmetrical Movement Motor Function-left arm: 0-Normal Motor Function-right arm: 0-Normal Motor Function-left le-Normal Motor Function-right le-Normal Limb Ataxia(vzoheu-ddaq-lzdand, or heel to macias): 0-No Ataxia Sensory(pin prick to face,arms,trunk,legs-compare side/side): 0-No Ataxia Best Language(name item/read sentence.Ex-Down to Earth): 1-Mild to Moderate Aphasia Dysarthria(Pt read words or say words Ex.Mama,Tip-Top,Thanks: 1-Mild-Mod Slurrin g Words Stroke tPA Guidelines - Inclusion Criteria for IV tPA 18 years old or older: Yes Ischemic stroke with measurable deficit: Yes Onset <3 hours ago *OR* 3-4.5 hours ago: No
[2019-06-04 08:49] LABS: INR 0.92; PROTIME 13.1 Seconds (11.0-16.0); PTT 30.5 Seconds (22.3-41.8)
--- NOTE | 2019-06-04 08:52 | EKG Report ---
Test Performed on : 06/04/2019 08:47:08 AM Test Reason : Stroke like symptoms Blood Pressure : / mmHG Vent. Rate : 072 BPM Atrial Rate : 072 BPM P-R Int : 150 ms QRS Dur : 074 ms QT Int : 422 ms P-R-T Axes : 000 036 026 degrees QTc Int : 462 ms Normal sinus rhythm. Nonspecific ST and T wave abnormality Abnormal ECG When compared with ECG of 25-APR-2019 10:33, Nonspecific T wave abnormality, worse in Anterolateral leads Unconfirmed Result
[2019-06-04 09:24] LABS: AGAP 15; ALB/GLOB RATIO 1.2; ALBUMIN 3.7 g/dL (3.5-5.0); ALKALINE PHOSPHATASE 40 U/L (32-104); BUN 9 mg/dL (8-22); CALCIUM 9.5 mg/dL (8.8-10.2); CHLORIDE 106 mmol/L (98-107); COSMO 293; CREATININE 0.7 mg/dL (0.5-0.9); ESTIMATED GFR > 60; GLUCOSE 132 mg/dL (70-104); GOT 15 U/L (10-30); GPT 14 U/L (10-36); POTASSIUM 4.5 mmol/L (3.5-5.1); SODIUM 147 mmol/L (136-145); TCO2 26 mmol/L (25-35); TOTAL BILIRUBIN 0.32 mg/dL (0.20-1.00); TOTAL PROTEIN 6.8 g/dL (6.3-8.3)
[2019-06-04 09:54] LABS: URINE SOURCE CLEAN CATCH
[2019-06-04 09:58] LABS: BILIRUBIN URINE NEGATIVE (NEGATIVE); BLOOD URINE TRACE (NEGATIVE); COLOR YELLOW; GLUCOSE URINE NEGATIVE (NEGATIVE); KETONE URINE NEGATIVE (NEGATIVE); LEUKOCYTES URINE MODERATE (NEGATIVE); NITRITE URINE NEGATIVE (NEGATIVE); PH URINE 6.5; PROTEIN URINE NEGATIVE (NEGATIVE); SP GRAVITY URINE 1.007; TURBIDITY URINE CLEAR (CLEAR); UROBILINOGEN URINE NORMAL (NORMAL)
[2019-06-04 10:00] LABS: UR EPITHELIAL CELLS <10 /HPF (<10); URINE BACTERIA 4+ /HPF; URINE RBC <10 /HPF (<10); URINE WBC 20-40 /HPF (<10)
[2019-06-04] MEDS ORDERED: ROCEPHIN 1 GM in NS 50 ML IV ONE (10:01)
[2019-06-04] MEDS ORDERED: XOPENEX NEB INH PRN (11:20)
[2019-06-04] MEDS ORDERED: TYLENOL PO PRN (11:20)
[2019-06-04] MEDS ORDERED: ULTRAM PO PRN (11:20)
[2019-06-04] MEDS ORDERED: ZOFRAN IV PRN (11:20)
--- NOTE | 2019-06-04 13:20 | Diag Imaging Result Doc PS360 ---
EXAM: MRI BRAIN W/WO CONTRAST INDICATION: cva COMPARISON: CT head dated 06/04/2019. No prior MRI brain is available for comparison. FINDINGS: There is restricted diffusion in the periventricular white matter (padilla radiata) on the left in the right frontal lobe consistent with acute infarct confirming suspicions seen on the earlier CT. There is corresponding increased T2/FLAIR signal in this region. There is also T2/FLAIR hyperintensity in the periventricular and subcortical white matter bilaterally suggesting advanced microangiopathy. There is also a chronic lacunar infarct in the subcortical white matter of the left frontal lobe. There is no discrete intracranial mass, mass effect, or intracranial hemorrhage. There is no evidence of abnormal intracranial enhancement. There is right frontal sinus mucosal disease as also seen on the CT. IMPRESSION: 1.Acute infarct involving the periventricular white matter on the left as described, which was also suspected on recent CT. 2.Advanced white matter microangiopathy. Electronically signed by Chris Chu 06/04/2019 1:18 PM
--- NOTE | 2019-06-04 13:27 | Diag Imaging Result Doc PS360 ---
EXAM: MRA BRAIN W/O CONTRAST INDICATION: cva TECHNIQUE: 3-D uenn-me-cseroi images through the brain were obtained in usual fashion. 3-D MIPS were also obtained. COMPARISON: None. FINDINGS: There is an incidental origin of the right ROUGH PATCHER and there is an aplastic A1 segment of the right ROSA. There is no evidence of flow-limiting stenosis, vascular malformation, or cerebral aneurysm involving the arteries comprising the [place], otherwise. This includes the anterior, middle, and posterior cerebral arteries. The basilar artery is widely patent. The distal ICAs are widely patent. The left vertebral artery is dominant. The vertebral arteries are patent. IMPRESSION: Incidental/nonacute findings detailed above. No evidence of flow-limiting cerebral stenosis. Electronically signed by Chris Chu 06/04/2019 1:24 PM
--- NOTE | 2019-06-04 14:20 | HISTORY AND PHYSICAL ---
PRIMARY CARE PROVIDER: Dr. Vic Celis. CHIEF COMPLAINT: Altered mental status and fall. HISTORY OF PRESENT ILLNESS: Ms. Vargas is a 73-year-old female, who carries a past medical history of COPD, hyperlipidemia, hypertension, who just recently last month underwent an open sigmoid colectomy secondary to diverticular stricture by Dr. Sommers. Per 's report since surgery 4 weeks ago, the patient has been having problems with hurting, however, she will not take her pain medications. She had been taking trazodone for pain medication. He reported over the last 4 to 5 days she has had difficulty forming sentences unstable with walking having to have more assistance. Two days ago, she was not able to state her name or date of , but however, since that time, she has improved. They noticed the memory impairment and difficulty speaking 4 to 5 days ago so they decided to bring her to the ED to be evaluated. The initial head CT showed advanced white matter micro angiopathy, new foci of low attenuation in the left frontal lobe, white matter that could not clearly be identified on previous study. Subacute infarct could not completely be excluded. We have put in for a MRI and MRA of the brain. The follow up chest x- ray did not show any pneumonia. Her urinalysis did show 4+ bacteria. However, she has denied any urinary symptoms however she has had these type issues before with urinary tract infection back in August. She was initiated on Rocephin. We will continue to trend her urine culture. The patient is currently awake and alert. Answers all questions appropriately. Follows all commands. Could not appreciate any slurred speech. REVIEW OF SYSTEMS: Twelve-point review of systems completely negative except for those mentioned in HPI. PAST MEDICAL HISTORY: COPD, hyperlipidemia, hypertension. PAST SURGICAL HISTORY: Recent open colectomy secondary to diverticular stricture [address] Sommers. ALLERGIES: Latex and Feldene. HOME MEDICATIONS: 1. Norvasc 5 mg p.o. at bedtime. 2. Zyrtec-D 1 each p.o. q.12 hours p.r.n. allergies. 3. Combivent inhaler 1 puff inhaled 4 times a day. 4. Prinivil 40 mg p.o. daily. 5. Nitroglycerin 0.4 mg sublingual p.r.n. chest pain. 6. Prednisone 10 mg p.o. p.r.n. shortness of breath. 7. Evista 60 mg p.o. daily. 8. Symbicort 2 puffs inhaled b.i.d. 9. Caltrate 600+ D 1 each p.o. daily. 10. Folic Acid 1 mg p.o. daily. 11. Xopenex 1.25 mg inhaled q.8 hours p.r.n. shortness of breath. 12. Synthroid 50 mcg p.o. daily. 13. Crestor 5 mg p.o. at bedtime. 14. Tramadol 50 mg p.o. q.6 hours p.r.n. pain. DIAGNOSTIC DATA: Head CT advanced white matter angiopathy with a few foci of low attenuation in the left frontal lobe, could not clearly be identified on previous study. Subacute infarct could not completely be excluded. MRI and MRA of the brain currently pending. Chest x-ray with no evidence of acute disease. LABORATORY DATA: White count 9, hemoglobin and hematocrit 13 and 40, platelet count is 412,000. Sodium 147, potassium 4.5, BUN 9, creatinine 0.7 blood glucose 132. Troponin less than 0.010. Urinalysis shows 4+ bacteria, 20 to 40 WBCs, and negative for nitrites. ASSESSMENT AND PLAN: 1. Cerebrovascular accident versus TIA, rule out. Head CT recommends follow-up with MRI of the brain. We will continue with that and MRA as well as carotid Doppler's, echocardiogram or physical therapy. Check a lipid profile. 2. Urinary tract infection. We will continue with IV Rocephin. Await urine culture. 3. Hypothyroidism. Continue Synthroid. 4. COPD. We will continue on home inhalers. 5. Hypertension. We will allow for permissive hypertension for the first 24 hours. 6. Resume her home Norvasc. 7. Recent abdominal surgery by Dr. Mitch Sommers secondary to a diverticular stricture. She underwent open colectomy. Her incision is healed. We will continue her p.r.n. Ultram. 8. Recent fall this morning. We will place her on fall precautions. The patient has had a similar episode back in August where she had a urinary tract infection. 9. Further recommendations to follow physician evaluation, laboratory and diagnostic data. Dictated by DONTRELL Nettles for Dread Uribe MD Addendum: Patient seen and examined by myself. Agree with SLOT ATTENDANT note. It reflects my assessment and plan. Patient is being admitted to hospital for possible stroke so will order MRI of brain and MRA as well, echocardiogram and PT/OT will be consulted. If we confirm an stroke a Neuro consult will be placed. cc: MD Vic Gomez MD [facility] HEALTHAndrea
--- NOTE | 2019-06-04 14:59 | ECHO REPORT ---
ORDER DATE: 06/04/2019 INDICATION: CVA. FINDINGS: 1. Right atrium appears normal in size at 3.7 cm. 2. Mild tricuspid regurgitation. RV systolic pressure of 37. 3. Normal RV size and systolic function. 4. No significant pulmonic insufficiency. 5. Normal left atrial size with a dimension of 3.5 cm. 6. No mitral valve prolapse. Mild mitral regurgitation. 7. Normal LV size, end-diastolic dimension of 4.7. Normal wall thicknesses with a posterior and interventricular septal thickness of 0.9 and 1.0 cm respectively. Normal LV systolic function. Estimated EF is 65% with normal wall motion. 8. Aortic valve opens well. There is mild insufficiency. The valve is trileaflet. No stenosis. 9. Aorta appears normal in visualized segments. 10. No pericardial effusion seen. cc: Lan Deras MD
[2019-06-04] MEDS: CRESTOR PO SCH (20:12)
[2019-06-04] MEDS: NORVASC PO SCH (20:12)
[2019-06-04] MEDS: SYMBICORT 160/4.5 MICROGM INHALER INH SCH (20:26)
--- NOTE | 2019-06-04 20:47 | Carotid Study ---
DATE: 06/04/2019 PROCEDURE: Bilateral duplex color flow imaging of the carotid arteries performed using a [employer] E9 Ultrasound System with a 9L-D transducer. REFERRING PHYSICIAN: Dr. Faith. INTERPRETING PHYSICIAN: Dr. Aileen Olea. TECH: Constance. INDICATIONS: A 73-year-old female with CVA/stroke. OBSERVED DATA RIGHT LEFT Brachial Blood Pressure Carotid Pulse Bruits: Carotid/Sub DIAGRAM OF ULTRASOUND IMAGING R L RIGHT INT EXT INT EXT LEFT Marcellus (cm/s) Marcellus (cm/s) Subclavian Subclavian CCA Proximal CCA Proximal CCA Distal CCA Distal Bulb Bulb ICA Proximal ICA Proximal ICA Mid ICA Mid ICA Distal ICA Distal ECA ECA Vertebral Vertebral ICA/CCA Ratio ICA/CCA Ratio % Stenosis % Stenosis FINDINGS: Mild atherosclerotic disease of the distal common and internal carotid arteries bilaterally without evidence of hemodynamically significant lesion in either carotid system. cc: Aileen Olea MD
[2019-06-05 05:43] LABS: BASO# 0.09 X1000 (0.0-0.2); BASO% 1.2 % (0.0-0.8); EOS# 0.18 X1000 (0.0-0.7); EOS% 2.4 % (0.0-10.0); HEMATOCRIT 39.8 % (37.0-47.0); HEMOGLOBIN 13.3 g/dL (12.0-16.0); IMM GRAN# 0.03 X1000 (0.0-0.04); IMM GRAN% 0.4 % (0.0-0.5); LYMPH# 1.33 X1000 (1.2-3.4); LYMPH% 17.9 % (20.5-51.1); MCH 30.6 PG (27-31); MCHC 33.4 g/dL (33-37); MCV 91.7 FL (81-99); MONO# 0.68 X1000 (0.11-0.59); MONO% 9.2 % (1.7-9.3); MPV 9.1 FL (7.4-10.4); NEUT# 5.12 X1000 (1.4-6.5); NEUT% 68.9 % (42.2-75.2); PLT 404 X1000 (130-400); RBC 4.34 XMIL (4.2-5.4); RDW 13.1 % (11.5-14.5); WBC 7.43 X1000 (4.8-10.8)
[2019-06-05 06:20] LABS: AGAP 11; BUN 6 mg/dL (8-22); CALCIUM 8.4 mg/dL (8.8-10.2); CHLORIDE 104 mmol/L (98-107); COSMO 278; CREATININE 0.6 mg/dL (0.5-0.9); ESTIMATED GFR > 60; GLUCOSE 111 mg/dL (70-104); POTASSIUM 3.8 mmol/L (3.5-5.1); SODIUM 140 mmol/L (136-145); TCO2 25 mmol/L (25-35)
[2019-06-05] MEDS: PRILOSEC PO SCH (06:56)
[2019-06-05] MEDS: SYNTHROID PO SCH ×2 (06:59→16:53)
[2019-06-05] MEDS: SYMBICORT 160/4.5 MICROGM INHALER INH SCH ×2 (08:19→19:32)
[2019-06-05] MEDS: CALTRATE 600 + D PO SCH (09:29)
[2019-06-05] MEDS: PRINIVIL PO SCH (09:29)
[2019-06-05] MEDS: FOLIC ACID PO SCH (09:29)
[2019-06-05] MEDS: ROCEPHIN 1 GM in NS 50 ML IV SCH (09:31)
[2019-06-05] MEDS: ASPIRIN PO SCH (09:34)
--- NOTE | 2019-06-05 15:02 | CONSULTATION ---
DATE OF CONSULTATION: 06/05/2019 HISTORY OF PRESENT ILLNESS: Ms. Vargas is 73 years old and there is evidence of stroke. History from the patient is that she noticed trouble finding words. She fell a few days ago. History from attentive is that he first noticed she had trouble completing her sentences about a week ago. This was more prominent at some times than others. Her trouble finding words seemed worse beginning 3 or 4 days ago. She did some tongue exercises and did not notice any deficit. There was no slurred speech. There was no definite trouble chewing or swallowing, although she might have been strangled once. There was not clear focal motor deficit until noticed her dragging her right leg walking yesterday. She fell yesterday. Speech was not worse around the time that she fell. There was never vision disturbance. There is no prior history of stroke. She has risk factors for cerebrovascular disease including age, hypertension, dyslipidemia. She has never been diagnosed with diabetes mellitus, but she has had some clinical findings of peripheral neuropathy. She does not smoke cigarettes. She had colectomy about a month ago and did well from surgical standpoint. She had taken aspirin regularly up until that point. Aspirin has been held since the colon surgery. Workup here includes brain MRI showing evidence of acute left frontal infarction. CT also showed this lesion. Echocardiogram showed no source of embolus. Carotid ultrasound showed no hemodynamically significant stenosis bilaterally. Brain MRA is unremarkable. On exam, Ms. Vargas is awake, alert, attentive and appropriate. Speech is not dysarthric. She had trouble performing bedside tasks requiring right/left distinction and digit distinction. She did well with naming objects and parts of objects. She did well with repeating. She followed simple and written commands equally well. I did not test her handwriting. Head and neck are unremarkable. Visual etienne are full tested grossly by confrontational finger counting. Extraocular movements are full. Facial motility is symmetric. Gag is intact. Tongue is midline. She has good strength in the left limbs. I can overcome the right arm at the deltoid grading 4+/5. Tone is increased in the right arm. She did rapid alternating movements a little better with the left hand than the right. She did well on [id number]-dizo testing bilaterally. She reports symmetric pinprick appreciation over the limbs. Proprioception is good at the great toe MTP joint bilaterally. I did not test her gait. Reflexes are absent at the ankles and 1+ symmetrically at the wrists. Plantar response is silent bilaterally. IMPRESSION: Minimal right hemiparesis, moderate dysphasia. This is consistent with her dominant left hemisphere infarction documented on MRI. We discussed her risk factors and I encouraged her to continue aggressive management. In light of the time frame since onset, approximately a week, I think we can treat blood pressure now. We discussed antiplatelet management at some length. Since she has documented infarction, this is no longer primary prevention, and I believe antiplatelet management is indicated. We discussed potential bleeding complications and dyspepsia. As long as these are not prominent, I would continue her daily aspirin. I do not think there is any further workup necessary now from neurologic standpoint. Thanks for asking us to see here. I will be glad to see Ms. Vargas as an outpatient again if needed. cc: Layne Haji III, MD MTDD
--- NOTE | 2019-06-05 17:41 | EKG Report ---
Test Performed on : 06/05/2019 5:30:38 PM Test Reason : 14 beat run of v-tach Blood Pressure : / mmHG Vent. Rate : 072 BPM Atrial Rate : 072 BPM P-R Int : 148 ms QRS Dur : 080 ms QT Int : 426 ms P-R-T Axes : -83 031 050 degrees QTc Int : 466 ms Unusual P axis, possible ectopic atrial rhythm. Nonspecific ST and T wave abnormality Abnormal ECG When compared with ECG of 04-JUN-2019 08:47, (Unconfirmed) Ectopic atrial rhythm. has replaced Sinus rhythm. Nonspecific T wave abnormality no longer evident in Inferior leads Confirmed by Shay Fitzpatrick MD ([id number]) on 06/06/2019 9:07:49 AM
[2019-06-05] MEDS: NORVASC PO SCH (20:53)
[2019-06-05] MEDS: CRESTOR PO SCH (20:53)
[2019-06-05] MEDS ORDERED: ATIVAN PO SCH (21:00)
[2019-06-06] MEDS: PRILOSEC PO SCH (07:05)
[2019-06-06] MEDS ORDERED: SYNTHROID PO SCH (07:05)
[2019-06-06] MEDS: SYMBICORT 160/4.5 MICROGM INHALER INH SCH (07:47)
[2019-06-06 08:28] VITALS: BP 151/75
[2019-06-06] MEDS: ASPIRIN PO SCH (09:37)
[2019-06-06] MEDS: ROCEPHIN 1 GM in NS 50 ML IV SCH (09:37)
[2019-06-06] MEDS: PRINIVIL PO SCH (09:37)
[2019-06-06] MEDS: FOLIC ACID PO SCH (09:37)
[2019-06-06] MEDS: CALTRATE 600 + D PO SCH (09:37)
--- NOTE | 2019-06-06 10:23 | PROGRESS NOTE ---
DATE: 06/06/2019 Ms. Vargas does not have any new complaints today. 's observation is that she finds words easier and completes her sentences more consistently when she is rested. She has been up walking with assistance. On exam now, she had trouble with commands requiring right/left distinction. Otherwise, she did well on bedside language testing. Speech is not dysarthric. IMPRESSION: Recent dominant left hemisphere infarction with moderate dysphasia. The deficit has been stable and may be slightly improved day by day. Workup has been extensive and is adequate at this point. I do not think we need anything further now. I encouraged her to continue attention to her risk factors and to be careful with activities. No new thoughts or new suggestions from Neurology standpoint today. Thanks for asking Neurology to see Ms. Vargas. cc: Layne Haji III, MD MTDD
--- NOTE | 2019-06-06 13:30 | DISCHARGE SUMMARY ---
ADMISSION DATE: 06/04/2019 DISCHARGE DATE: 06/06/2019 CONSULTATIONS: Dr. Haji with Neurology. PERTINENT PROCEDURES: Head CT, advanced white matter micro angiopathy and a few foci of low attenuation in the middle left frontal lobe white matter that could not be clearly identified on previous study, although still may be chronic subacute infarct could not completely be excluded. Brain MRA, incidental nonacute findings. Brain MRI, acute infarct involving the periventricular white matter on the left which was also suspected on recent CT advanced white matter microangiopathy. Carotid Dopplers, mild atherosclerotic disease of the distal common and internal carotid arteries bilaterally without evidence of hemodynamically significant lesion in either carotid system. Echocardiogram showed EF of 65% with normal wall motion. DISCHARGE DIAGNOSES: 1. Recent dominant left hemisphere infarction with moderate dysphagia with improvement day by day. Will continue on daily aspirin and Plavix. 2. Escherichia coli urinary tract infection. Patient has been treated with IV Rocephin. She denies any urinary symptoms. Repeat culture is currently pending. 3. Hypothyroidism. Continue Synthroid. 4. COPD. Continue home inhalers. 5. Hypertension. We will initiate her back on her antihypertensive. 6. Recent abdominal surgery by Dr. Mitch Sommers secondary to diverticular stricture where she underwent open colectomy. Again, incision has healed well. 7. Recent fall secondary to #1, improved. Patient has been working with physical therapy. Will be discharged home with home health. HOSPITAL COURSE: Briefly, Ms. Vargas is a 73-year-old female who carries a past medical history of COPD, hyperlipidemia, hypertension. Last month underwent an open sigmoid cholecystectomy secondary to diverticular stricture by Dr. Mitch Sommers. The patient had reported problems with abdominal pain. However, she would not take her prescribed medication. She was taking trazodone for her pain medicine. I did briefly discuss with them that this may not be the appropriate medication to take for pain management. However, she was refusing to take her pain medication, but they did report over the last 4 to 5 days she had difficulty forming sentences and was unstable with walking and having to have more assistance. It improved 2 days prior to them coming to the ER. However, patient at that time was not able to state her name or date of . In the ED, she had initial head CT that showed some advanced white matter micro angiopathy as well as the area of low attenuation in the left frontal lobe that could not be seen on previous study. We followed that up with MRI and MRA of the brain, which did in fact show a recent infarct. She also underwent carotid Dopplers, echocardiogram, and was followed by Dr. Haji with Neurology. She was started on anti-platelet management and discussed her risk factors as well as aggressive treatment. She has improved somewhat day by day and she will be discharged home with home health. VITAL SIGNS: Temperature is 98.3 degrees, heart rate 70, respirations 20, blood pressure 151/75, O2 is 100% on room air. DISCHARGE DIET: GI soft. DISCHARGE MEDICATIONS: 1. Crestor 5 mg p.o. at bedtime. 2. Norvasc 5 mg p.o. at bedtime. 3. Budesonide 0.5 mg inhaled b.i.d. p.r.n. 4. Caltrate 600+ D 1 each p.o. daily. 5. Combivent inhaler 1 puff inhaled 4 times a day. 6. Evista 60 mg p.o. daily. 7. Folic acid 1 mg p.o. daily. 8. Nitroglycerin 0.4 mg sublingual p.r.n. 9. Prednisone 10 mg p.o. p.r.n. 10. Prilosec 20 mg p.o. daily. 11. Prinivil 40 mg p.o. daily. 12. Symbicort 160-4.5 mcg inhaler 2 puffs inhaled b.i.d. 13. Synthroid 50 mcg p.o. daily. 14. Tramadol 50 mg p.o. q. 6 hours p.r.n. 15. Xopenex 1.25 mg inhaled q. 8 hours p.r.n. 16. Zyrtec-D 1 each p.o. q. 12 hours p.r.n. 17. Ativan 0.5 mg p.o. at bedtime. 18. Plavix 75 mg p.o. daily. FOLLOWUP: Ms. Vargas is being discharged back home with her and home health. She can return to the ED or call 911 for any worsening of symptoms. She can follow up with her primary care provider in the next 1 to 2 weeks. Dictated by DONTRELL Nettles for Dread Uribe MD Addendum: Patient seen and examined by myself. Agree with PHARMACY CLERK note. It reflects my assessment and plan. Patient is being discharged from hospital in stable condition and will be seen by primary care doctor in a week. cc: MD Vic Gomez MD Eston G. Norwood III, MD MTDD
--- NOTE | 2019-06-07 09:22 | PROGRESS NOTE ---
DATE: 06/05/2019 SUBJECTIVE: Patient reports feeling fine right now. OBJECTIVE: Vital Signs: Temperature 98.3, heart rate 69 , respiratory rate 16, blood pressure 136/58 . General: This is a 73-year-old female lying in bed in no acute distress. Cardiovascular: S1 S2 heard, no murmurs. Respiratory: Clear bilateraly to auscultation. Abdomen: Soft and not tender. Extremities: No edema. Neurologic: moves 4 extremities. IMAGING: MRI of the brain showed acute infarct involving the periventricular white matter on the left as described, which was also suspected on recent CT. Advanced white matter microangiopathy. ASSESSMENT AND PLAN: 1. Acute stroke. MRI findings as above. At this time I think we are going to consult DR. Haji to see if there is anything else that we can do for this patient. The patient will be placed on aspirin. Physical Therapy and Occupational Therapy have been consulted. Will follow recommendations. 2. Urinary tract infection. trying to see if urine was contaminant. The patient currently is on intravenous Rocephin. We are going to repeat the urine culture and will go from there. 3. Chronic obstructive pulmonary disease. 4. Recent abdominal surgery . 5. Recent recurrent falls. Physical Therapy will be working with her. 6. Disposition. We will continue to monitor this patient. cc: Dread Uribe MD MTDD
== END 2019-06-06 12:32 | disposition home health service (06) | DRG 65 ==
LOC: ED 07:57 → 4N 10:48
PROVIDERS: ATTEND Internal Medicine
CPT/HCPCS: 70450; 70544; 70553; 71010; 71045; 80048; 80053; 80061; 81001; 82948; 83721; 84484; 85025; 85610; 85730; 87077; 87088; 87186; 93005; 93010; 93306; 93880; 94640; 94761; 97110; 97116; 97162; 97530; A9270; A9579; J0696; XXXXX